=== PATIENT | male | born 1990 | race Caucasian/White ===

== ENCOUNTER 2017-01-17 15:30 | Emergency (ER) | payer OTHER ==
[~2017-01-17] VITALS: Ht 177.8 cm; Wt 97.7 kg
[2017-01-17 15:36] VITALS: BP 151/69; PULSE 69; RESP 20; O2SAT 98
[2017-01-17 17:41] LABS: BASOPHILS % (AUTO) 0.3 % (0-3); MONOCYTES % (AUTO) 10.1 % (4-12); Mean Corpuscular Hemoglobin 30.1 pg (27.0-35.0); NEUTROPHILS % (AUTO) 61.3 % (40-74); Platelet Count 271 bil/L (150-400)
[2017-01-17 17:44] LABS: INR 1.04 ratio
[2017-01-17 17:50] VITALS: BP 116/63; PULSE 60; RESP 20; O2SAT 96
--- NOTE | 2017-01-17 18:01 | ED.REPORT ---
HPI-General Illness Date of Service Jan 17, 2017 ED Provider: Keyana Desouza MD Patient is a 26 year old male with a history of a evp sales shunt who presents to the ED complaining of a headache onset yesterday. Associated symptoms include lower back pain. He denies nausea, vomiting, vision changes, numbness, weakness or problems walking. The patient reports that his headache is throbbing and his back pain he describes as a tightness. Patient rates the pain as a 6/10 but if he stands up and walks around it goes up to a 9/10. He states that he is concerned his shunt might have been knocked loose as this has happened before. The patient had a fall two weeks ago that he thinks might have contributed to his symptoms. Nursing Notes Stated Complaint: HEADACHE Chief Complaint: Headache Nursing Notes Reviewed: Yes Allergies: Coded Allergies: No Known Allergies (Unverified , 01/17/17) General Time Seen by MD: 18:00 Chief Complaint Headache Hx Obtained From: Patient Arrived By: Walk-in Sudden in Onset?: Yes Onset Occurred: 4 days ago Symptom Duration: Since onset Location: : Head Quality: Painful, Throbbing Radiation: : Back Severity: Current: Moderate Similar Sx Previous: Yes Past Medical History Past Medical History none reported Past Surgical History evp sales shunt Smoking History Unknown if Ever Smoker Social History Other Social History: Good social support Ambulatory Status Independent Review of Systems Full Review of Systems Constitutional: Denies: Chills, Fever Respiratory: Denies: Non-productive cough, Shortness of breath GI: Denies: Nausea, Vomiting Musculoskeletal: Reports: Back pain Skin: Denies Itching, Denies Rash Neurologic: Reports: Headache, Denies: Numbness, Problem walking, Vision change, Weakness Complete sys rev & neg: except as marked. Physical Exam Vital Signs Vital Signs Date Time Temp Pulse Resp B/P Pulse Ox O2 Delivery O2 Flow Rate FiO2 01/18/17 01:45 36.9 63 16 118/66 98 Room Air 01/17/17 20:56 66 17 109/52 100 Room Air 01/17/17 17:50 60 20 116/63 96 Room Air 01/17/17 15:36 36.6 69 20 151/69 98 Room Air Initial VS: Reviewed, Vital signs abnormal General/Constitutional: Awake, Alert Head / Eyes: Atraumatic, Normocephalic, No nystagmus mild aniscoria, right slightly bigger than left pupils reactive Neck: Atraumatic, Supple Respiratory / Chest: Atraumatic, Breath sounds NL, Breath sounds = bilat, No respiratory distress Cardiovascular: Heart rate NL, Regular rhythm, Heart sounds NL Abdomen: Atraumatic, Soft, Non-tender Skin: Atraumatic, Color NL, No rash, Warm, Dry Neurologic: Oriented X3, Speech NL, No motor deficits, No sensory deficits, CN II - XII intact, Reflexes equal bilat, Cerebellar NL Psychiatric: Affect NL, Mood NL Interpretation & Diagnostics Lab Results Interpretation Result Diagram: 01/17/17 1735 01/17/17 1735 Test 01/17/17 16:30 01/17/17 17:35 01/17/17 20:14 Hold Purple Top Tube Received (Received) Hold Blue Top Tube Received (Received) Hold [place] Top Tube Received (Received) Hold [place] Top Tube Received (Received) White Blood Count 6.7th/mm3 (3.8-10.1) Red Blood Count 5.12mil/mm3 (4.40-5.80) Hemoglobin 15.4g/dL (13.8-17.2) Hematocrit 43.5% (41.0-50.0) Mean Corpuscular Volume 85.0fL (81-100) Mean Corpuscular Hemoglobin 30.1pg (27.0-35.0) Mean Corpuscular Hemoglobin Concent 35.4% (32.0-37.0) Red Cell Distribution Width 12.7% (12.3-15.4) Platelet Count 271bil/L (150-400) Neutrophils (%) (Auto) 61.3% (40-74) Lymphocytes (%) (Auto) 26.1% (14-46) Monocytes (%) (Auto) 10.1% (4-12) Eosinophils (%) (Auto) 2.0% (0-5) Basophils (%) (Auto) 0.3% (0-3) Prothrombin Time 11.1sec (8.1-12.5) Prothromb Time International Ratio 1.04ratio Sodium Level 139mEq/L (134-144) Potassium Level 4.1mEq/L (3.5-5.2) Chloride Level 102mEq/L (97-108) Carbon Dioxide Level 24mmol/L (18-29) Blood Urea Nitrogen 15mg/dL (6-20) Creatinine 0.99mg/dL (0.76-1.27) Estimat Glomerular Filtration Rate 98mL/min (>59) Glucose Level 123mg/dL (60-99) Calcium Level 9.2mg/dL (8.5-10.1) Total Bilirubin 0.3mg/dL (0.0-1.2) Aspartate Amino Transf (AST/SGOT) 31U/L (0-50) Alanine Aminotransferase (ALT/SGPT) 39U/L (0-44) Alkaline Phosphatase 67U/L (25-150) Total Protein 7.3g/dL (6.4-8.4) Albumin 4.3g/dL (3.4-5.0) Hold Urine Received (Received) X-Ray Interpretation Xray Interpretation: IMPRESSION: There likely is one shunt catheter that is abandoned, as discussed above in the second appears in continuity with the intraparenchymal course of the ventriculostomy catheter best seen by CT scanning. at 1952 Study Performed: Shunt series without injection Interpretation / Wet Read by: Interpret - Radiologist CT Head Interpretation IMPRESSION: No acute disease found. Chronic appearing mild to moderate hydrocephalus with 2 ventriculostomy catheters crossing from right to left as discussed above. An addendum report can be generated if old comparison CT scans become available for review. Dictated by: Dipak Tovar M.D. on 01/17/2017 at 18:46 Approved by: Dipak Tovar M.D. on 01/17/2017 at 18:47 Interpretation / Wet Read by: Interpret - Radiologist Re-Eval/Medical Decision Med Decision/Clinical Course This patient presents with a headache that is similar to when his shunt required a revision approximately 10 years ago. He does not have any neurologic symptoms although he has a significant headache but declined pain medications. Initially I spoke with Dr. Pacheco a neurosurgeon at [facility] who accepted the patient, she is able to compare his current CT with an old one which showed he did have enlarged ventricles. Due to patient's age there were unable to accept the patient's O [facility] was contacted and they requested a try to find alternate care for the patient. I spoke with the neurosurgeon at [facility] in [place] who was unable to take the patient to see does not do this procedure. Contacted [facility] again and there was some difficulty with him obtaining the images from [facility] to compare his current CT. Eventually I spoke with Dr. Álvarez and he accepted the patient for transfer to [facility]. I spoke with the ER doctor, Dr. Gimenez to let him know about the patient. Time of Eval: 20:32 Re-Evaluation/Progress Note: Discussed results and option to transfer to [facility] Time of Eval: 20:43 Re-Evaluation/Progress Note: Patient would like to be transferred to [facility]. Patient understands and agrees to plan. All questions were addressed Time of Eval: 21:11 Re-Evaluation/Progress Note: Discussed plan to transfer to [facility] and not [facility] Patient understands and agrees to plan. All questions were addressed. Time of Eval: 01:00 Re-Evaluation/Progress Note: Discussed status of trying to find a hospital to accept him Consultation #1: Consulted With: On-call physician Call Returned at: 19:15 Care Trainer: Agrees with eval, Agrees with plan, Accepts admit Note: Consult with Dr. Pacheco from [facility] who recommends the patient follow up with the neuro clinic at [facility] or he can be transferred to [facility]. Consultation #2: Call Returned at: 21:04 Note: Dr. Pacheco from [facility] recommends that the patient go to [facility]. Consultation #3: Consulted With: Neurosurgery Call Returned at: 22:03 Note: [facility] states they would prefer if the patient could go to another hospital but might be able to accept if no one else could. Consultation #4: Consulted With: Neurosurgery Call Returned at: 23:03 Note: Dr. Hilliard from [facility] was unable to find anyone who would be able to accept the patient. Consultation #5: Consulted With: Neurosurgery Call Returned at: 00:57 Note: Consult with Dr. Álvarez from [facility], will call back after he reviews the patient's old images. Consultation #6: Consulted With: Neurosurgery Call Returned at: 01:20 Care Trainer: Will see patient, Accepts admit Note: Consult with Dr. Álvarez, who accepts the patient. Counseled Regarding: Diagnosis, Lab results, Need for transfer Discharge & Departure Primary Impression: Hydrocephalus Additional Impression: Shunt malfunction Disposition: Transfer, Acute Care Facility Receiving Hospital: [facility] Transfer Accepted: Yes Transfer Accepted at: 01:20 Patient Status: Stable Patient Informed: Yes Discharge Condition All VS Reviewed: Yes Condition: Stable Referrals: NOPCP (PCP) Eric Attestation Portions of this note were transcribed by Carrie Coughlin. I, Dr. Desouza personally performed the history, physical exam and medical decision-making; I reviewed and confirmed the accuracy of the information in the transcribed note. Signed by: Eric Barnard, 01/17/17 Keyana Desouza MD Jan 17, 2017 18:01 Nery Coughlin Jan 17, 2017 18:08
--- NOTE | 2017-01-17 18:49 | DRSVH ---
PROCEDURE: CT BRAIN WITHOUT CONTRAST ([id number]) INDICATIONS: evaluate shunt TECHNIQUE: Noncontrast 4.5 mm thick angled axial sections acquired from the foramen magnum to the vertex, with c oronal reformats. COMPARISON: None. FINDINGS: Image quality: Excellent. CSF spaces: Basal cisterns are patent. No extra-axial fluid collections. Ventricles are chronicall y enlarged in size and shape and 2 right-sided ventriculostomy catheters cross 2 and through the midl ine from right to left. Brain: No midline shift. No intracranial masses or hemorrhage. Kumari-white matter interface is norm al. Skull and face: Calvarium and visualized facial bones are intact, without suspicious lesions. Sinuses: Visualized sinuses and mastoids are clear. IMPRESSION: No acute disease found. Chronic appearing mild to moderate hydrocephalus with 2 ventric ulostomy catheters crossing from right to left as discussed above. An addendum report can be generat ed if old comparison CT scans become available for review. Dictated by: Dpiak Tovar M.D. on 01/17/2017 at 18:46 Approved by: Dipak Tovar M.D. on 01/17/2017 at 18:47
--- NOTE | 2017-01-17 19:55 | DRSVH ---
PROCEDURE: X-RAY SHUNT SERIES W/O INJECTION INDICATIONS: fell COMPARISON: None. FINDINGS: 2 shunt catheters are seen overlying the right neck, one of which extends more superiorly and the second of which terminates at the axial level of the horizontal ramus of the right mandible. The more superior shunt catheter appears to intersect a reservoir of the shunt, and then a 3 pronged distribution device can be seen more superiorly from which 2 separate shunt catheters appear to exte nd towards the midline. During CT scanning earlier this evening the more superior shunt catheter adiel ears contiguous, seen extending above and below the very radiolucent shunt reservoir. The lower shun t does not appear connected. This lower shunt catheter appears to terminate superimposed on the uppe r right lung, and the more superior directed shunt catheter appears to traverse inferiorly to overlie the abdomen. IMPRESSION: There likely is one shunt catheter that is abandoned, as discussed above in the second a ppears in continuity with the intraparenchymal course of the ventriculostomy catheter best seen by CT scanning. Dictated by: Dipak Tovar M.D. on 01/17/2017 at 19:48 Approved by: Dipak Tovar M.D. on 01/17/2017 at 19:53
[2017-01-17 20:56] VITALS: BP 109/52; PULSE 66; RESP 17; O2SAT 100
[2017-01-18 01:45] VITALS: BP 118/66; PULSE 63; RESP 16; O2SAT 98
== END 2017-01-18 02:32 | disposition short-term general hospital (02) ==
LOC: SED 15:30
DX: G91.9 Hydrocephalus, unspecified (principal); T85.698A Other mechanical complication of other specified internal prosthetic devices, implants and grafts, initial encounter; Y83.1 Surgical operation with implant of artificial internal device as the cause of abnormal reaction of the patient, or of later complication, without mention of misadventure at the time of the procedure; Y92.89 Other specified places as the place of occurrence of the external cause; Y93.89 Activity, other specified; Y99.8 Other external cause status; M54.5 Low back pain; Z98.2 Presence of cerebrospinal fluid drainage device